=== PATIENT | female | born 1970 | race Caucasian/White ===

== ENCOUNTER 2016-09-11 12:14 | Observation (INO) | payer BC ==
[2016-09-11] VITALS (9 sets, daily range): BP systolic 115–146; BP diastolic 68–85
[~2016-09-11] VITALS: Ht 160 cm; Wt 68.0 kg
[~2016-09-11 12:14] MED LIST: AMBIEN10 M1 ORAL; BENADRYL25 MG ORAL; Bacitracin 50000 Units Vial ONE; Bupivacaine w/Epi 0.5% 30ml Vial INJ ONE; FIORICET1 EA ORAL; GABAPENTIN300 MG ORAL; IMITREX50 MG ORAL; MELOXICAM7.5 MG PO; NORCO 10-325 T1 EACH ORAL; PERCOCET 10-321 EACH ORAL; REGLAN5 MG ORAL; SOMA350 MG PO; Thrombin 5000 units TOPIC ONE; VALACYCLOVIR500 MG ORAL; VALIUM10 MG ORAL; VIIBRYD40 MG PO; Vancomycin 1gm inj IVPB ONE; ceFAZolin 2gm/50ml Premix 50 ML IVPB ONE
[2016-09-11] MEDS ORDERED: LR 1000ml 1,000 ML IVLG SCH (12:55)
--- NOTE | 2016-09-11 12:55 | Anethesia Preoperative Eval ---
Anesthesia Pre-op PMH/ROS General Date of Evaluation: Sep 11, 2016 Time of Evaluation: 13:11 Anesthesiologist: Niya ASA Score: ASA 3 Mallampati Score Class I : Soft palate, uvula, fauces, pillars visible Class II: Soft palate, uvula, fauces visible Class III: Soft palate, base of uvula visible Class IV: Only hard plate visible Mallampati Classification: Class II Surgeon: Miriam Diagnosis: Neck Pain Surgical Procedure: ACDF C5-6, C6-7 Anesthesia History: none Social History: current smoker, alcohol use, drug use - in Rehab Family History: no anesthesia problems Allergies: Coded Allergies: No Known Allergies (Unverified , 09/10/16) Medications: see eMAR Past Medical History Cardiovascular: Reports: other - Elvated Troponins-Non STEMI Pulmonary: Reports: other - Smoker Gastrointestinal/Genitourinary: Reports: GERD Neurologic/Psychiatric: Reports: depression/anxiety, other - Migranes Hematology/Immune: Reports: other - Cervical CA PSxH Narrative: LEEP, Lumbar SX, L CTR, L L HR, Laparoscopic Cholecystectomy Anesthesia Pre-op Phys. Exam Physician Exam Constitutional: NAD Neurologic: CN 2-12 intact Cardiovascular: RRR Respiratory: CTA Gastrointestinal: S/NT/ND Airway Exam Mallampati Score: Class II MO: full ROM: limited Teeth: missing, intact Anesthesia Pre-op A/P Risk Assessment & Plan Assessment: ASA 3 Plan: GA, BIS, Glidescope Pre-Antibiotics Dru Grams Ancef IV Given Within 1 Hr of Incision: Yes Time Given: 13:26 Milan Núñez MD Sep 11, 2016 12:55
--- NOTE | 2016-09-11 12:57 | Immediate Post-Op Evaluation ---
Immediate Post-Op Evalulation Immediate Post-Op Evalulation Procedure: ACDF C5-6, C6-7 Date of Evaluation: Sep 11, 2016 Time of Evaluation: 17:22 IV Fluids: 900 LR Blood Products: 0 Estimated Blood Loss: 50 Urinary Output: 200 Blood Pressure Systolic: 141 Blood Pressure Diastolic: 79 Pulse Rate: 89 Respiratory Rate: 18 O2 Sat by Pulse Oximetry: 100 Temperature (Fahrenheit): 97.1 Pain Score (1-10): 3 Nausea: No Vomiting: No Complications 0 Patient Status: awake, reacts, patent, extubated, none Hydration Status: adequate Dru Grams Ancef IV Given Within 1 Hr of Incision: Yes Time Given: 13:26 Milan Núñez MD Sep 11, 2016 12:57
[2016-09-11] MEDS ORDERED: Lidocaine 1% MPF 10mg/ml 5ml ONE (13:00)
[2016-09-11] MEDS ORDERED: Norco 5mg/325mg tab ORAL PRN ×2 (13:00→13:30)
[2016-09-11] MEDS ORDERED: Midazolam 2mg/2ml Inj IVP PRN (13:00)
[2016-09-11] MEDS ORDERED: Glycopyrrolate 0.2mg/ml 1ml Vial ONE (13:00)
[2016-09-11] MEDS ORDERED: Atropine Inj 1mg/10ml Syr IV PRN (13:00)
[2016-09-11] MEDS ORDERED: LORazepam Inj 2mg/ml 1ml IV PRN (13:00)
[2016-09-11] MEDS ORDERED: Labetalol 5mg/ml 20ml vial IV PRN (13:00)
[2016-09-11] MEDS ORDERED: Zemuron 50mg/5ml Inj IV ONE (13:00)
[2016-09-11] MEDS ORDERED: Dexamethasone 4mg/ml vial ONE (13:00)
[2016-09-11] MEDS ORDERED: fentaNYL 250mcg/5ml ONE (13:00)
[2016-09-11] MEDS ORDERED: fentaNYL 100 mcg/2 mL IV PRN (13:00)
[2016-09-11] MEDS ORDERED: Oxycodone/Acetaminophen 5-325 ORAL PRN (13:00)
[2016-09-11] MEDS ORDERED: Ketorolac 30mg Inj IV PRN (13:00)
[2016-09-11] MEDS ORDERED: Norco 7.5mg/325mg tab ORAL PRN ×3 (13:00→13:30)
[2016-09-11] MEDS ORDERED: Metoclopramide 10mg/2ml Inj IVP PRN (13:00)
[2016-09-11] MEDS ORDERED: Neostigmine 1mg/ml 10ml Inj ONE (13:00)
[2016-09-11] MEDS ORDERED: Propofol 10mg/ml 20ml IV ONE (13:00)
[2016-09-11] MEDS ORDERED: NS Irrig 1000ml ONE (13:00)
[2016-09-11] MEDS ORDERED: Ketorolac 60mg Inj IV PRN (13:00)
[2016-09-11] MEDS ORDERED: Hydromorphone 0.5mg/0.5ml inj IVP PRN (13:00)
[2016-09-11] MEDS ORDERED: Meperidine 25mg/ml Inj IV PRN (13:00)
[2016-09-11] MEDS ORDERED: Sterile Water Irrig 1000ml IRRIG ONE (13:00)
[2016-09-11] MEDS ORDERED: LR 1000ml ONE (13:00)
[2016-09-11] MEDS ORDERED: NS Irrig 1000ml IRRIG ONE (13:15)
[2016-09-11] MEDS ORDERED: Naloxone 0.4mg/ml Inj IVP PRN (13:30)
[2016-09-11] MEDS ORDERED: HYDROmorphone 1mg/ml Carpuject IVP PRN (13:30)
[2016-09-11] MEDS ORDERED: HYDROmorphone 1mg/ml Carpuject SUBQ PRN (13:30)
--- NOTE | 2016-09-11 13:30 | Pre-Procedure Note/Attestation ---
Pre-Procedure Note/Attestation Complete Prior to Procedure Procedure Narrative: acdf c56 and c67 with icbg Indications for Procedure Pre-Operative Diagnosis: cervical radic Attestation I attest that I discussed the nature of the procedure; its benefits; risks and complications; and alternatives (and the risks and benefits of such alternatives ), prior to the procedure, with the patient (or the patient's legal chemical sales representative). I attest that, if there was a reasonable possibility of needing a blood transfusion, the patient (or the patient's legal chemical sales representative) was given the [facility] standardized written summary, pursuant to the [place] Blood Safety Act ([place] Health and Safety Code # 1645, as amended). I attest that I re-evaluated the patient just prior to the surgery and that there has been no change in the patient's H&P, except as documented below: DEV BENITEZ Sep 11, 2016 13:30
--- NOTE | 2016-09-11 17:09 | Brief Operative Note ---
Immediate Post Operative Note Operative Note Pre-op Diagnosis: cervical radic Procedure: acdf c56 and c67 Post-op Diagnosis: same as pre-op Findings: consistent w/pre-op dx studies Surgeon: codie Profile Saw Setup Operator: lui Anesthesiologist: nitza Anesthesia: general Specimen: none Complications: none Condition: stable Fluids: 1000 Estimated Blood Loss: minimal Drains: none Implant(s) used?: Yes DEV BENITEZ Sep 11, 2016 17:09
[2016-09-11] MEDS: DiphenhydrAMINE 50mg/ml Inj IVP PRN ×2 (17:26→20:18)
[2016-09-11] MEDS ORDERED: DiphenhydrAMINE 50mg/ml Inj ONE (17:28)
[2016-09-11] MEDS ORDERED: Acetaminophen (Non formulary) 1,000 MG/100 ML ML IV SCH (17:30)
[2016-09-11] MEDS: Docusate 100mg cap ORAL SCH (21:00)
[2016-09-11] MEDS: ceFAZolin sod 1 GM in D5W 55 ML IV SCH (21:30)
[2016-09-11] MEDS: D5 1/2NS 1,000 ML IV SCH (21:31)
[2016-09-12] MEDS ORDERED: Zolpidem 5mg tab ORAL PRN
[2016-09-12 00:57] VITALS: BP 141/72
[2016-09-12 04:00] VITALS: BP 115/67
[2016-09-12] MEDS: D5 1/2NS 1,000 ML IV SCH (05:00)
[2016-09-12] MEDS: ceFAZolin sod 1 GM in D5W 55 ML IV SCH ×2 (06:45→13:28)
[2016-09-12 08:00] VITALS: BP 138/74
[2016-09-12] MEDS ORDERED: SUMAtriptan 50mg tab ORAL SCH (09:00)
[2016-09-12] MEDS: Docusate 100mg cap ORAL SCH (09:08)
[2016-09-12 09:29] VITALS: BP 142/76
--- NOTE | 2016-09-12 09:29 | 48 Hour Post Anesthesia Eval ---
Post Anesthesia Evaluation Procedure: ACDF C5-6, C6-7 Date of Evaluation: Sep 12, 2016 Time of Evaluation: 09:28 Blood Pressure Systolic: 142 0: 76 Pulse Rate: 68 Respiratory Rate: 20 Temperature (Fahrenheit): 97.5 O2 Sat by Pulse Oximetry: 98 Airway: patent Nausea: No Vomiting: No Pain Intensity: 3 Hydration Status: adequate Cardiopulmonary Status: stable Mental Status/LOC: patient returned to baseline Follow-up Care/Observations: n/a Post-Anesthesia Complications: none Follow-up care needed: N/A PRIYANK RICO M.D. Sep 12, 2016 09:29
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
--- NOTE | 2016-09-12 21:18 | Discharge Summary ---
Discharge Summary Hospital Course Date of Admission Sep 11, 2016 at 19:16 Date of Discharge Sep 12, 2016 at 15:30 Admitting Diagnosis HPI Radha Peng is a 46 year old female who was admitted on Sep 11, 2016 at 19: 16 for C5-6,C6-7 Disc Stenosis Hospital Course [id number] Discharge Discharge Disposition Patient was discharged to Home (01) Discharge Diagnoses: Maddie Griffiths NP Sep 12, 2016 21:18
--- NOTE | 2016-09-13 12:37 | Discharge Summary 2 SIG ---
DATE OF ADMISSION: 09/11/2016 DATE OF DISCHARGE: 09/12/2016 NOTE: THIS IS A CANCELLED DICTATION BRIEF HOSPITAL COURSE: The patient is a 46-year-old female Manfred Pineda M.D. I have been assigned to dictate discharge summary on this account and I was not involved in the patient's management. Maddie Griffiths N.P. DR: SALUD JOB#: [id number] CC:
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
== END 2016-09-12 15:30 | disposition home or self-care (01) ==
LOC: SUR 12:14 → 3E 19:16 → INTOOBSV 19:16
DX: M50.123 Cervical disc disorder at C6-C7 level with radiculopathy (principal); M50.122 Cervical disc disorder at C5-C6 level with radiculopathy; M48.02 Spinal stenosis, cervical region; G43.909 Migraine, unspecified, not intractable, without status migrainosus; F17.210 Nicotine dependence, cigarettes, uncomplicated; K21.9 Gastro-esophageal reflux disease without esophagitis; F32.9 Major depressive disorder, single episode, unspecified; F41.9 Anxiety disorder, unspecified; I25.2 Old myocardial infarction; Z85.41 Personal history of malignant neoplasm of cervix uteri; Z79.899 Other long term (current) drug therapy; Z87.898 Personal history of other specified conditions
CPT/HCPCS: 20937; 22551; 22552; 22853; 36415; 72040; 76001; 81025; 86850; 86900; 86901; 87081; 97110; 97112; 97116; 97161; 97165; 97530; 97535; C1713; G0378; J0690; J1100; J1170; J1200; J2250; J2405; J2704; J2710; J3010; J3370; J7120; 94003; 94150